=== PATIENT | male | born 1970 | race Caucasian/White ===

== ENCOUNTER → 2019-07-12 | Outpatient (CLI) | payer BC ==
[~2019-07-12] MED LIST: AGM875T PO; DOXY-233 PO
--- NOTE | 2019-07-12 11:16 | Diagnostic Imaging Report ---
PROCEDURE: US left lower extremity venous. TECHNIQUE: Multiple real-time grayscale images were obtained over the left lower extremity in various projections. Additional duplex Doppler and color Doppler images were also obtained. INDICATION: Left lower extremity swelling and redness. FINDINGS: There is no evidence of left lower extremity DVT. Left lower extremity deep venous system shows normal compressibility with normal response to augmentation and Valsalva. There is a prominent lymph node in the upper left thigh measuring 3.4 x 1.5 x 4.6 cm, indeterminate. IMPRESSION: 1. No evidence of left lower extremity DVT. 2. Prominent indeterminate left upper thigh lymph node. Dictated by: Dictated on workstation # [id number]
== END ==
LOC: RAD 09:52
PROVIDERS: ATTEND Nurse Practitioner Family
DX: M79.89 Other specified soft tissue disorders (principal); M79.662 Pain in left lower leg; R09.82 Postnasal drip; R05 Cough

== ENCOUNTER 2020-07-09 17:53 | Observation (INO) | payer BC ==
[~2020-07-09] VITALS: Ht 187.9 cm; Wt 120.2 kg
[2020-07-09 18:39] LABS: BASOPHILS # (AUTO) 0.1 10^3/uL (0.0-0.1); BASOPHILS % (AUTO) 0 % (0-10); EOSINOPHILS % (AUTO) 0 % (0-10); HEMATOCRIT 44 % (40-54); LYMPHOCYTES % (AUTO) 9 % (12-44); MEAN CORPUSCULAR HEMOGLOBIN 30 pg (25-34); MEAN CORPUSCULAR HGB CONC 34 g/dL (32-36); MEAN CORPUSCULAR VOLUME 88 fL (80-99); MEAN PLATELET VOLUME 10.3 fL (9.0-12.2); MONOCYTES % (AUTO) 5 % (0-12); NEUTROPHILS % (AUTO) 86 % (42-75); PLATELET COUNT 229 10^3/uL (130-400); WHITE BLOOD COUNT 23.2 10^3/uL (4.3-11.0)
[2020-07-09] MEDS ORDERED: LACTATED RINGERS 1,000 ML IV ONE ×2 (18:45→21:40)
--- NOTE | 2020-07-09 18:46 | ED Lower Extremity ---
General Chief Complaint: Lower Extremity Stated Complaint: L LEG REDNESS/SWELLING Nursing Triage Note: Pt ambulatory to ED. Pt reports noticing redness, pain and swelling in L lower extremity this morning. Erythema noted in pt's L lower extremity. Nursing Sepsis Screen: No Definite Risk (IRA DICKSON) History of Present Illness Date Seen by Provider: Jul 09, 2020 Time Seen by Provider: 18:20 Initial Comments This is a 50 year old male presenting to the Emergency Department via ambulation for a chief complaint of left leg redness and swelling that began this morning. The patient states this morning it started out as a small sore area with swelling and redness. It progressed and worsened. It's a 5/10 pain. He complains of a throbbing headache and feeling clammy. He denies fever. He tried ibuprofen and elevating his leg which helped. He stated this felt similar to the cellulitis he had last June. PMHx: diabetes PSHx: none SocHx: no smoking. drinks occasionally. no drugs medications: metformin, lisinopril, atorvastatin allergy to meds: amoxicillin (AE: upset stomach) Onset: this morning Pain/Injury Location: left leg (IRA DICKSON) Allergies and Home Medications Allergies Coded Allergies: amoxicillin (Verified Adverse Reaction, Mild, GI UPSET, 07/09/20) Patient Home Medication List Home Medication List Reviewed: Yes (MOUSTAPHA LOOMIS MD) Review of Systems Constitutional: other (clammy) EENTM: no symptoms reported Respiratory: no symptoms reported; No cough, No short of breath Cardiovascular: no symptoms reported Gastrointestinal: no symptoms reported Genitourinary: no symptoms reported Musculoskeletal: no symptoms reported Skin: change in color (redness on medial left calf), other (warmth and swelling on medial left calf) Psychiatric/Neurological: Headache (IRA DICKSON STUDENT) Past Nimdwal-Hjoiaj-Edduzt Hx Past Med/Social Hx: Reviewed Nursing Past Med/Soc Hx (MOUSTAPHA LOOMIS MD) Patient Social History Alcohol Use: Occasionally Uses Smoking Status: Never a Smoker 2nd Hand Smoke Exposure: No Recent Infectious Disease Expo: No Recent Hopitalizations: No (IRA DICKSON) Past Medical History Surgeries: Yes Respiratory: No Cardiac: Yes High Cholesterol, Hypertension Neurological: No Reproductive Disorders: No Genitourinary: No Gastrointestinal: No Musculoskeletal: No Endocrine: Yes Diabetes, Non-Insulin dep HEENT: No Cancer: No Psychosocial: No Blood Disorders: No (IRA DICKSON MED STUDENT) Physical Exam Vital Signs Vital Signs - First Documented 07/09/20 18:08 Temp 36.3 Pulse 108 Resp 22 B/P (MAP) 121/77 (92) Pulse Ox 96 O2 Delivery Room Air (MOUSTAPHA LOOMIS MD) Vital Signs Capillary Refill : Less Than 3 Seconds (IRA DICKSON MED STUDENT) Height, Weight, BMI Height: '" Weight: lbs. oz. kg; 34.00 BMI Method:Stated General Appearance: WD/WN, no apparent distress Cardiovascular: tachycardia Respiratory: chest non-tender, lungs clear, normal breath sounds, no respiratory distress, no accessory muscle use Legs: right leg non-tender, right leg normal inspection; bilateral leg normal range of motion, bilateral leg no evidence of injury; left leg soft tissue tenderness, left leg swelling, left leg other (warm, red) Neurologic/Tendon: normal motor functions, responds to pain Neurologic/Psychiatric: alert, normal mood/affect, oriented x 3 (IRA DICKSON MED STUDENT) Progress/Results/Core Measures Results/Orders Lab Results Laboratory Tests Test 07/09/20 18:20 07/09/20 19:55 Range/Units White Blood Count 23.2 H 4.3-11.0 10^3/uL Red Blood Count 4.98 4.30-5.52 10^6/uL Hemoglobin 15.0 13.3-17.7 g/dL Hematocrit 44 40-54 % Mean Corpuscular Volume 88 80-99 fL Mean Corpuscular Hemoglobin 30 25-34 pg Mean Corpuscular Hemoglobin Concent 34 32-36 g/dL Red Cell Distribution Width 11.9 10.0-14.5 % Platelet Count 229 130-400 10^3/uL Mean Platelet Volume 10.3 9.0-12.2 fL Immature Granulocyte % (Auto) 1 % Neutrophils (%) (Auto) 86 H 42-75 % Lymphocytes (%) (Auto) 9 L 12-44 % Monocytes (%) (Auto) 5 0-12 % Eosinophils (%) (Auto) 0 0-10 % Basophils (%) (Auto) 0 0-10 % Neutrophils # (Auto) 20.0 H 1.8-7.8 10^3/uL Lymphocytes # (Auto) 2.0 1.0-4.0 10^3/uL Monocytes # (Auto) 1.0 0.0-1.0 10^3/uL Eosinophils # (Auto) 0.0 0.0-0.3 10^3/uL Basophils # (Auto) 0.1 0.0-0.1 10^3/uL Immature Granulocyte # (Auto) 0.1 0.0-0.1 10^3/uL Neutrophils % (Manual) 87 % Lymphocytes % (Manual) 10 % Monocytes % (Manual) 3 % Blood Morphology Comment NORMAL Prothrombin Time 15.2 H 12.2-14.7 SEC INR Comment 1.2 0.8-1.4 Activated Partial Thromboplast Time 32 24-35 SEC D-Dimer 0.94 H 0.00-0.49 UG/ML Sodium Level 137 135-145 MMOL/L Potassium Level 4.0 3.6-5.0 MMOL/L Chloride Level 101 98-107 MMOL/L Carbon Dioxide Level 23 21-32 MMOL/L Anion Gap 13 5-14 MMOL/L Blood Urea Nitrogen 17 7-18 MG/DL Creatinine 1.11 0.60-1.30 MG/DL Estimat Glomerular Filtration Rate > 60 BUN/Creatinine Ratio 15 Glucose Level 120 H 70-105 MG/DL Lactic Acid Level 2.18 *H 1.95 0.50-2.00 MMOL/L Calcium Level 9.7 8.5-10.1 MG/DL C-Reactive Protein High Sensitivity 8.56 H 0.00-0.50 MG/DL (MOUSTAPHA LOOMIS MD) My Orders Orders - MOUSTAPHA LOOMIS MD Basic Metabolic Panel (07/09/20 18:27) Cbc With Automated Diff (07/09/20 18:27) Hs C Reactive Protein (07/09/20 18:27) Fibrin Degradation Products (07/09/20 18:27) Ed Iv/Invasive Line Start (07/09/20 18:27) Lactated Ringers (Lr 1000 Ml Iv Solution (07/09/20 18:45) Manual Differential (07/09/20 18:20) Blood Culture (07/09/20 19:43) Protime With Inr (07/09/20 19:43) Partial Thromboplastin Time (07/09/20 19:43) Vital Signs Adult Sepsis Patie Q15M (07/09/20 19:43) Remove Rings In Anticipation O (07/09/20 19:43) Lactic Acid Analyzer (07/09/20 19:43) Ceftriaxone For Iv Use (Rocephin For I (07/09/20 20:00) Enoxaparin Injection (Lovenox Injection) (07/09/20 20:00) (MOUSTAPHA LOOMIS MD) Medications Given in ED Current Medications Medications Dose Ordered Sig/Marilu Route Start Time Stop Time Status Last Admin Dose Admin Ceftriaxone Sodium 1000 mg/ Sterile Water 10 ml @ 200 mls/hr ONCE ONCE IV 07/09/20 20:00 07/09/20 20:02 DC 07/09/20 20:15 200 MLS/HR Enoxaparin Sodium 120 mg ONCE ONCE SC 07/09/20 20:00 07/09/20 20:01 DC 07/09/20 20:15 120 MG Lactated Ringer's 1,000 ml @ 0 mls/hr Q0M ONCE IV 07/09/20 18:45 07/09/20 18:46 DC 07/09/20 18:48 1,000 MLS/HR (MOUSTAPHA LOOMIS MD) Vital Signs/I&O 07/09/20 18:08 Temp 36.3 Pulse 108 Resp 22 B/P (MAP) 121/77 (92) Pulse Ox 96 O2 Delivery Room Air (MOUSTAPHA LOOMIS MD) Blood Pressure Mean: 92 Progress Progress Note #1: Time: 18:40 Progress Note - D-dimer was ordered to r/o a DVT due to the location on the lower left extremity. IV line was established. Blood work ordered, results pending.. LR was started. Septic workup due to 101 heart rate, diabetes, and possible source of infection. Progress Note #2: Progress Note - Tachycardia at 101 HR, WBC elevated at 23.2. U/S ordered for the morning because the D-dimer is elevated at .94. Vancomycin, Rocephin, and Lovenox ordered for the cellulitis. We discussed the patient being admitted. Patient agreed to be admitted. (IRA DICKSON MED STUDENT) Progress Note : Progress Note Patient was seen and examined by me personally. WBC and CRP were elevated suggesting sepsis from cellulitis. Patient received a liter of IV fluid and Rocephin for initial treatment. Vancomycin will be added on the floor. D-dimer was also elevated. Lovenox was given for empiric treatment. Ultrasound will be obtained in the morning. Borders of the erythema were marked with a skin marker. (MOUSTAPHA LOOMIS MD) Departure Communication (Admissions) Time/Spoke to Admitting Phy: 19:50 Dr. Calix (MOUSTAPHA LOOMIS MD) Impression Primary Impression: Cellulitis of left leg Additional Impressions: Sepsis Qualified Codes: A41.9 - Sepsis, unspecified organism Elevated d-dimer Disposition: ADMITTED INPATIENT Condition: Stable Admissions Decision to Admit Reason: Admit from ER (General) Decision to Admit/Date: Jul 09, 2020 Time/Decision to Admit Time: 19:50 (MOUSTAPHA LOOMIS MD) Departure-Patient Inst. Referrals: KEISHA PIMENTEL DO (PCP/Family) Primary Care Physician Medical Student Attestation and Attending Note: I have personally interviewed and examined this patient along with Ira Dickson, MS 3. I have reviewed student documentation including history, physical, and assessments. I agree with the documentation except where otherwise noted. Exam: General: Alert, oriented, no acute distress, well developed HEENT: Normocephalic and atraumatic Heart: Tachycardia without murmur Lungs: Clear to auscultation bilaterally with normal effort Abdomen: Soft, nontender, nondistended, normal bowel sounds Neuropsych: Alert, oriented, no focal deficits Skin: Warmth, erythema, and tenderness to a circumferential patch of skin on the left lower leg. Damaged skin at the edges of a couple of toenails on the left foot. (MOUSTAPHA LOOMIS MD) Copy Copies To 1: KEISHA PIMENTEL ELIZABETH X MED STUDENT Jul 09, 2020 18:46 MOUSTAPHA LOOMIS MD Jul 09, 2020 20:08
[2020-07-09 18:51] LABS: CHLORIDE 101 MMOL/L (98-107); SODIUM 137 MMOL/L (135-145)
[2020-07-09 18:52] LABS: CALCIUM 9.7 MG/DL (8.5-10.1)
[2020-07-09 18:53] LABS: GLUCOSE 120 MG/DL (70-105)
[2020-07-09 18:54] LABS: CARBON DIOXIDE 23 MMOL/L (21-32)
[2020-07-09 18:57] LABS: CREATININE SERUM 1.11 MG/DL (0.60-1.30); GFR ESTIMATED > 60
[2020-07-09 18:58] LABS: BUN/CREATININE RATIO 15
[2020-07-09 19:00] LABS: LYMPHOCYTES % (MANUAL) 10 %; MONOCYTES % (MANUAL) 3 %; NEUTROPHILS % (MANUAL) 87 %; RBC MORPH NORMAL
[2020-07-09 19:57] LABS: INR 1.2 (0.8-1.4); PROTHROMBIN TIME PATIENT 15.2 SEC (12.2-14.7)
[2020-07-09] MEDS ORDERED: cefTRIAXone FOR IV USE 1,000 MG in WATER (STERILE) FOR INJECTION 10 ML IV ONE (20:00)
[2020-07-09] MEDS ORDERED: ENOXAPARIN 60 MG/0.6 ML (LOVENOX) SYR SC ONE (20:00)
[2020-07-09] MEDS ORDERED: cefTRIAXone 1,000 MG/SWFI 10 ML IV PUSH IV SCH ×2 (20:00)
[2020-07-09] MEDS ORDERED: ONDANSETRON 4 MG/2 ML (SDV) Z0FRAN ONE (20:05)
[2020-07-09] MEDS ORDERED: ONDANSETRON 4 MG/2 ML (SDV) Z0FRAN IVP ONE (20:15)
[2020-07-09 21:40] VITALS: BP 127/67
--- NOTE | 2020-07-09 21:40 | NUR ---
HARDIK VALENTIN admitted to room 419-1, with an admitting diagnosis of sepsis and cellulitis, on 07/09/20 from ER via , accompanied by ED staff. HARDIK VALENTIN introduced to surroundings, call light, bed controls, phone, TV, temperature control, lights, meal times, smoking policy, visitor policy, side rail policy, bathrooms and showers. Patient Rights given to patient in the handbook. HARDIK VALENTIN verbalizes understanding that [facility] is not responsible for the loss or damage to any personal effects or valuables that are kept in the patients possession during their hospitalization.
[2020-07-09] MEDS: LACTATED RINGERS 1,000 ML IV SCH (22:08)
[2020-07-09] MEDS ORDERED: LISI-556 PO (22:12)
[2020-07-09] MEDS ORDERED: ATOR10TA66 PO (22:12)
[2020-07-09] MEDS ORDERED: METF-397 PO (22:12)
[2020-07-09] MEDS ORDERED: ONDANSETRON 4 MG/2 ML (SDV) Z0FRAN IV PRN (22:15)
[2020-07-09] MEDS ORDERED: VANCOMYCIN INJECTION 1,000 MG in NS (IVPB) 250 ML IV SCH (22:15)
[2020-07-09] MEDS ORDERED: IBUPROFEN 600 MG (MOTRIN) TAB PO PRN (22:15)
[2020-07-09] MEDS ORDERED: ACETAMINOPHEN 500 MG TAB (TYLENOL) PO PRN (22:15)
[2020-07-09] MEDS ORDERED: VANCOMYCIN 1000 MG/VIAL ONE (22:25)
[2020-07-09] MEDS ORDERED: NS IV 500 ML 500 ML ONE (22:28)
[2020-07-09] MEDS ORDERED: VANCOMYCIN INJECTION 2,000 MG in NS IV 500 ML 500 ML IV SCH (23:00)
[2020-07-10] VITALS: BP 95/55
[2020-07-10 04:12] VITALS: BP 107/62
[2020-07-10] MEDS ORDERED: NS (IVPB) 250 ML ONE (05:04)
[2020-07-10] MEDS ORDERED: VANCOMYCIN 1000 MG/VIAL ONE (05:04)
[2020-07-10] MEDS: VANCOMYCIN INJECTION 1,000 MG in NS (IVPB) 250 ML IV SCH ×3 (05:59→22:05)
[2020-07-10] MEDS: LACTATED RINGERS 1,000 ML IV SCH ×2 (05:59→12:39)
[2020-07-10 06:39] LABS: BASOPHILS % (AUTO) 0 % (0-10); EOSINOPHILS # (AUTO) 0.1 10^3/uL (0.0-0.3); EOSINOPHILS % (AUTO) 1 % (0-10); HEMATOCRIT 38 % (40-54); HEMOGLOBIN 13.2 g/dL (13.3-17.7); LYMPHOCYTES # (AUTO) 1.9 10^3/uL (1.0-4.0); LYMPHOCYTES % (AUTO) 16 % (12-44); MEAN CORPUSCULAR HEMOGLOBIN 31 pg (25-34); MEAN CORPUSCULAR HGB CONC 35 g/dL (32-36); MEAN CORPUSCULAR VOLUME 89 fL (80-99); MEAN PLATELET VOLUME 10.3 fL (9.0-12.2); MONOCYTES # (AUTO) 1.2 10^3/uL (0.0-1.0); MONOCYTES % (AUTO) 10 % (0-12); NEUTROPHILS # (AUTO) 8.4 10^3/uL (1.8-7.8); NEUTROPHILS % (AUTO) 72 % (42-75); PLATELET COUNT 163 10^3/uL (130-400); WHITE BLOOD COUNT 11.6 10^3/uL (4.3-11.0)
[2020-07-10] MEDS: inSUlin ASPART (NovoLOG) 1 UNIT/0.01 ML (CHARGE PER UNIT) SC SCH ×4 (06:42→20:30)
[2020-07-10 06:48] LABS: CHLORIDE 105 MMOL/L (98-107); POTASSIUM 4.3 MMOL/L (3.6-5.0); SODIUM 138 MMOL/L (135-145)
[2020-07-10 06:49] LABS: CALCIUM 8.6 MG/DL (8.5-10.1)
[2020-07-10 06:50] LABS: GLUCOSE 151 MG/DL (70-105)
[2020-07-10 06:51] LABS: CARBON DIOXIDE 26 MMOL/L (21-32)
[2020-07-10 06:53] LABS: CREATININE SERUM 0.83 MG/DL (0.60-1.30); GFR ESTIMATED > 60
[2020-07-10 06:54] LABS: BUN/CREATININE RATIO 16
[2020-07-10 08:00] VITALS: BP 109/67
--- NOTE | 2020-07-10 08:44 | History & Physical-Hospitalist ---
VIVIANA ANDINO,MED STUDENT 07/10/20 0844: History of Present Illness HPI/Chief Complaint Patient is a 50yo male with a PMH of NIDDM and HTN who presented to [facility] ED on 05/09 c/o LLE redness and swelling for x1 day. He states he noticed on some pain in his left calf when he woke up yesterday morning, and noted it was somewhat painful to walk. He has a hx of cellulitis in June of 2019 that did not require hospitalization, and he says this pain felt similar. He had planned to see his PCP on Friday, but says the pain progressed throughout the day, and he noticed redness and swelling from his calf to his ankle. He states the pain was a 5/10 and "felt like a leg cramp". He notes his temperature was 99 at home. He tried OTC Motrin and Tylenol which helped some. He also reports some fatigue and tachycardia at home. In the ED, WBC, CRP and lactic acid were elevated, and d- dimer was elevated. He was started on Rocephin and fluids, and was scheduled for a lower extremity ultrasound for this morning. Source: patient Exam Limitations: no limitations Date Seen 07/10/20 Time Seen by a Provider: 07:45 Attending Physician Ana Calix MD PCP Luis Massey DO Referring Physician Date of Admission Jul 09, 2020 at 20:02 Home Medications & Allergies Home Medications Reviewed patient Home Medication Reconciliation performed by pharmacy medication reconciliations dental technician and/or nursing. Patients Allergies have been reviewed. Allergies Allergies Coded Allergies amoxicillin (Verified Adverse Reaction, Mild, GI UPSET, 07/09/20) Past Bgkoixo-Lvlwte-Zpusaj Hx Past Med/Social Hx: Reviewed Nursing Past Med/Soc Hx Patient Social History Marrital Status: Alcohol Use: Occasionally Uses Recreational Drug Use: No Smoking Status: Never a Smoker 2nd Hand Smoke Exposure: No Recent Foreign Travel: No Contact w/other who traveled: No Recent Hopitalizations: No Recent Infectious Disease Expo: No Immunizations Up To Date Date of Influenza Vaccine: Apr 10, 2020 Past Medical History Cardiac: High Cholesterol, Hypertension Reproductive: No Endocrine: Diabetes, Non-Insulin dep History of Blood Disorders: No Family History Diabetes (Father and grandfather) Review of Systems Constitutional: No chills, No dizziness, No fever; malaise EENTM: No hearing loss, No blurred vision, No double vision, No vision loss, No nose congestion, No throat pain Respiratory: No cough, No short of breath, No wheezing Cardiovascular: No chest pain, No palpitations, No syncope Gastrointestinal: No abdominal pain, No constipation, No diarrhea; nausea; No vomiting Genitourinary: no symptoms reported Musculoskeletal: see HPI Skin: see HPI, change in color; No lumps, No pruritus Psychiatric/Neurological: Headache; Denies Numbness; Paresthesia; Denies Tingling, Denies Weakness Physical Exam Physical Exam Vital Signs Vital Signs - First Documented 07/09/20 18:08 Temp 36.3 Pulse 108 Resp 22 B/P (MAP) 121/77 (92) Pulse Ox 96 O2 Delivery Room Air Capillary Refill : NONELess Than 3 Seconds Height, Weight, BMI Height: '" Weight: lbs. oz. kg; 34.04 BMI Method:Stated General Appearance: No Apparent Distress, WD/WN HEENT: PERRL/EOMI, Pharynx Normal, Moist Mucous Membranes Neck: Full Range of Motion, Non Tender, Supple Respiratory: Chest Non Tender, Normal Breath Sounds, No Accessory Muscle Use, No Respiratory Distress Cardiovascular: Regular Rate, Rhythm, No Edema, No Murmur, Normal Peripheral Pulses Gastrointestinal: Normal Bowel Sounds, Non Tender, Soft Extremity: Normal Capillary Refill, Normal Range of Motion, No Pedal Edema; No Calf Tenderness; Inflammation, Swelling Neurologic/Psychiatric: Alert, Oriented x3, No Motor/Sensory Deficits Skin: Erythema (LLE) Results Results/Procedures Labs Laboratory Tests 07/09/20 18:20 07/10/20 06:30 Patient resulted labs reviewed. Assessment/Plan Admission Diagnosis Left leg cellulitis Assessment and Plan Left leg cellulitis -on Rocephin and Vanc -d-dimer elevated, ultrasound pending -Lovenox for DVT prophylaxis Sepsis -continue abx -on LR at 150/hr -repeat lactic acid Leukocytosis -improving NIDDM -continue Metformin 500mg BID Hypertension -hold Lisinopril JOHNNY MUNOZ MD 07/10/20 1357: Assessment/Plan Admission Diagnosis Admission Status: Inpatient Order (span 2 midnights) Reason for Inpatient Admission: see below Assessment and Plan Pt admitted with severe sepsis from cellulitis of left leg. He is doing much better on IV abx. Cultures are pending at this time. Lactic acidosis resolved. No other complaints. lower extremity usg done and negative for DVT. Decrease Lovenox to 40mg. If continues to do well hopeful to DC home tomorrow. Diagnosis/Problems Diagnosis/Problems (1) Severe sepsis (2) Cellulitis of left leg Status: Acute (3) Elevated d-dimer Status: Acute (4) Hypertension (5) Non-insulin dependent type 2 diabetes mellitus Supervisory-Addendum Brief Verification & Attestation Participated in pt care: history, MDM, physical Personally performed: exam, history, MDM, supervision of care Care discussed with: Medical Student Procedures: n/a Results interpretation: Verified all documentation Verification and Attestation of Medical Student E/M Service A medical student performed and documented this service in my presence. I reviewed and verified all information documented by the medical student and made modifications to such information, when appropriate. I personally performed the physical exam and medical decision making. Johnny Munoz, Jul 10, 2020,13:47 VIVIANA ANDINO,MED STUDENT Jul 10, 2020 08:44 JOHNNY MUNOZ MD Jul 10, 2020 13:57
--- NOTE | 2020-07-10 09:51 | Diagnostic Imaging Report ---
PROCEDURE: US left lower extremity venous. TECHNIQUE: Multiple real-time grayscale images were obtained over the left lower extremity in various projections. Additional duplex Doppler and color Doppler images were also obtained. INDICATION: Cellulitis left lower leg. Nodule in the left groin. FINDINGS: Color Doppler imaging shows normal flow through the venous system of the left lower extremity from the common femoral vein to the ankle. Calf compression showed normal augmentation of flow at the popliteal level. There is an enlarged lymph node in the left groin measuring 2.5 x 3.8 x 1.2 cm. This does show thickening of the cortical mantle. IMPRESSION: 1. No evidence of venous thrombosis left lower extremity. 2. Enlarged lymph nodes left groin. Dictated by: Dictated on workstation # [id number]
[2020-07-10] MEDS ORDERED: CETI10TA49 PO (11:14)
[2020-07-10] MEDS ORDERED: ZINC50TA51 PO (11:14)
[2020-07-10] MEDS ORDERED: ASCO500T17 PO (11:14)
[2020-07-10] MEDS ORDERED: IBUP-2473 PO (11:14)
[2020-07-10] MEDS ORDERED: ACET325T38 PO (11:14)
[2020-07-10] MEDS ORDERED: MULT-974 PO (11:14)
--- NOTE | 2020-07-10 11:15 | NUR ---
I SPOKE WITH THE PATIENT AND WENT THROUGH THE EXTERNAL MED HISTORY TO COMPLETE THIS MED REC. OTC: TYLENOL IBUPROFEN ZYRTEC MULTIVITAMIN VITAMIN C ZINC
[2020-07-10 12:00] VITALS: BP 106/66
[2020-07-10] MEDS: LACTOBACILLUS ACIDOPHILUS (PROBIOTIC) CAPSULE PO SCH ×2 (12:39→18:08)
[2020-07-10 16:00] VITALS: BP 122/72
[2020-07-10 19:24] VITALS: BP 125/72
[2020-07-10] MEDS ORDERED: cefTRIAXone 1,000 MG/SWFI 10 ML IV PUSH IV SCH ×2 (20:00)
[2020-07-10] MEDS ORDERED: ENOXAPARIN 40 MG/0.4 ML (LOVENOX) SYR SC SCH (21:00)
[2020-07-10] MEDS ORDERED: TROUGH ORDER-PHARMACY XX NR (21:00)
[2020-07-11 00:44] VITALS: BP 116/63
[2020-07-11] MEDS: VANCOMYCIN INJECTION 1,000 MG in NS (IVPB) 250 ML IV SCH (05:59)
[2020-07-11] MEDS: inSUlin ASPART (NovoLOG) 1 UNIT/0.01 ML (CHARGE PER UNIT) SC SCH (06:00)
[2020-07-11 08:00] VITALS: BP 123/78
[2020-07-11 08:00] LABS: HEMOGLOBIN 13.2 g/dL (13.3-17.7); MEAN PLATELET VOLUME 10.4 fL (9.0-12.2); WHITE BLOOD COUNT 6.8 10^3/uL (4.3-11.0)
[2020-07-11 08:18] LABS: BUN/CREATININE RATIO 13; CALCIUM 8.7 MG/DL (8.5-10.1); CARBON DIOXIDE 24 MMOL/L (21-32); CHLORIDE 107 MMOL/L (98-107); CREATININE SERUM 0.83 MG/DL (0.60-1.30); GFR ESTIMATED > 60; GLUCOSE 162 MG/DL (70-105); POTASSIUM 4.2 MMOL/L (3.6-5.0); SODIUM 141 MMOL/L (135-145)
--- NOTE | 2020-07-11 08:53 | Progress Note - Hospitalist ---
Subjective HPI/CC On Admission Date Seen by Provider: Jul 11, 2020 Time Seen by Provider: 08:15 Patient is a 50yo male with a PMH of NIDDM and HTN who presented to [facility] ED on 05/09 c/o LLE redness and swelling for x1 day. He states he noticed on some pain in his left calf when he woke up yesterday morning, and noted it was somewhat painful to walk. He has a hx of cellulitis in June of 2019 that did not require hospitalization, and he says this pain felt similar. He had planned to see his PCP on Friday, but says the pain progressed throughout the day, and he noticed redness and swelling from his calf to his ankle. He states the pain was a 5/10 and "felt like a leg cramp". He notes his temperature was 99 at home. He tried OTC Motrin and Tylenol which helped some. He also reports some fatigue and tachycardia at home. In the ED, WBC, CRP and lactic acid were elevated, and d- dimer was elevated. He was started on Rocephin and fluids, and was scheduled for a lower extremity ultrasound for this morning. Focused Exam Lactate Level 07/09/20 18:20: Lactic Acid Level 2.18*H 07/09/20 19:55: Lactic Acid Level 1.95 Objective Exam Vital Signs Vital Signs Date Time Temp Pulse Resp B/P (MAP) Pulse Ox O2 Delivery O2 Flow Rate FiO2 07/11/20 11:05 35.5 66 18 123/78 96 Room Air Capillary Refill : NONELess Than 3 Seconds General Appearance: No Apparent Distress, WD/WN HEENT: PERRL/EOMI, Pharynx Normal, Moist Mucous Membranes Neck: Full Range of Motion, Non Tender, Supple Respiratory: Normal Breath Sounds, No Accessory Muscle Use, No Respiratory Distress Cardiovascular: Regular Rate, Rhythm, No Edema, No Murmur, Normal Peripheral Pulses Gastrointestinal: Normal Bowel Sounds, Non Tender, Soft Extremity: Normal Capillary Refill, No Calf Tenderness Neurologic/Psychiatric: Alert, Oriented x3 Results/Procedures Lab Laboratory Tests 07/11/20 07:53 Patient resulted labs reviewed. Assessment/Plan Assessment and Plan Assess & Plan/Chief Complaint Left leg cellulitis -on Rocephin and Vanc -LLE ultrasound negative for DVT -Lovenox 40mg for DVT prophylaxis -consider D/C home today Severe Sepsis -continue abx -lactic acidosis resolved Leukocytosis -improving NIDDM -continue Metformin 500mg BID Hypertension -hold Lisinopril VIVIANA ANDINO,MED STUDENT Jul 11, 2020 08:52
[2020-07-11] MEDS ORDERED: CEPH500T PO (10:03)
[2020-07-11] MEDS: LACTOBACILLUS ACIDOPHILUS (PROBIOTIC) CAPSULE PO SCH (10:17)
--- NOTE | 2020-07-11 10:18 | Discharge Inst-Simple/Standard ---
Discharge Inst-Standard Patient Instructions/Follow Up Plan of Care/Instructions/FU: Please continue to take your medications as written. Please follow up with your primary care doctor to follow up this hospital stay. Activity as Tolerated: Yes Discharge Diet: ADA Diet Return to The Hospital For: Chest pain, shortness of breath, fever, worsening swelling or redness, if you feel you are getting worse. JOHNNY RIGGINS MD Jul 11, 2020 10:10
[2020-07-11] MEDS ORDERED: inSUlin ASPART (NovoLOG) 1 UNIT/0.01 ML (CHARGE PER UNIT) SC SCH (11:00)
[2020-07-11 11:05] VITALS: BP 123/78
--- NOTE | 2020-07-11 11:22 | Discharge Summary ---
Diagnosis/Chief Complaint Date of Admission Jul 09, 2020 at 20:02 Date of Discharge 07/11/20 Discharge Date: Jul 11, 2020 Admission Diagnosis Primary Care AndrewLuis bowles Discharge Diagnosis (1) Severe sepsis (2) Cellulitis of left leg Status: Acute (3) Elevated d-dimer Status: Acute (4) Hypertension (5) Non-insulin dependent type 2 diabetes mellitus Discharge Summary Discharge Physical Exam Allergies: Coded Allergies: amoxicillin (Verified Adverse Reaction, Mild, GI UPSET, 07/09/20) Vitals & I&Os Vital Signs Date Time Temp Pulse Resp B/P (MAP) Pulse Ox O2 Delivery O2 Flow Rate FiO2 07/11/20 11:05 35.5 66 18 123/78 96 Room Air General Appearance: No Apparent Distress, WD/WN HEENT: PERRL/EOMI, Pharynx Normal, Moist Mucous Membranes Respiratory: Chest Non Tender, Normal Breath Sounds, No Accessory Muscle Use, No Respiratory Distress Cardiovascular: Regular Rate, Rhythm, No Edema, No Murmur, Normal Peripheral Pulses Gastrointestinal: Normal Bowel Sounds, Non Tender, Soft Extremity: Normal Capillary Refill, Non Tender, No Calf Tenderness Skin: Warm/Dry, Erythema (Improved since admission) Neurologic/Psychiatric: Alert, Oriented x3, Normal Mood/Affect Hospital Course Patient is a 50yo male with a PMH of NIDDM and HTN who presented to [facility] ED on 05/09 c/o LLE redness and swelling for x1 day. He had noticed pain in his left calf the day before and that it was painful to walk. He has a hx of cellulitis in June of 2019 for which he was successfully treated outpatient with abx. He had planned to see his PCP the following Friday, but came in after the pain and swelling progressed throughout the day. He reported subjective fevers, fatigue and tachycardia at home. In the ED, WBC, CRP, lactic acid and d-dimer were elevated. A LLE ultrasound was performed due to the elevated d-dimer, which was negative for a DVT. He was started on Rocephin and admitted for LLE cellulitis and severe sepsis. He was also started on Vancomycin and he continued to improve. The lactic acidosis resolved, his WBC improved and he was afebrile throughout his hospital stay. Prior to discharge, he denied any new concerns, and reported his pain was well controlled and only experienced mild pain while walking. Labs (last 24 hrs) Laboratory Tests 07/10/20 15:34: Glucometer 143H 07/10/20 20:18: Glucometer 173H 07/10/20 21:20: Vancomycin Level Trough 11.0 07/11/20 05:59: Glucometer 158H 07/11/20 07:53: White Blood Count 6.8, Red Blood Count 4.31, Hemoglobin 13.2L, Hematocrit 39L, Mean Corpuscular Volume 90, Mean Corpuscular Hemoglobin 31, Mean Corpuscular Hemoglobin Concent 34, Red Cell Distribution Width 12.2, Platelet Count 167, Mean Platelet Volume 10.4, Sodium Level 141, Potassium Level 4.2, Chloride Level 107, Carbon Dioxide Level 24, Anion Gap 10, Blood Urea Nitrogen 11, Creatinine 0.83, Estimat Glomerular Filtration Rate > 60, BUN/Creatinine Ratio 13, Glucose Level 162H, Calcium Level 8.7 Microbiology 07/09/20 Blood Culture - Preliminary, Resulted No growth Patient resulted labs reviewed. Pending Labs Laboratory Tests 07/11/20 05:59: Glucometer 158 07/11/20 07:53: White Blood Count 6.8, Red Blood Count 4.31, Hemoglobin 13.2, Hematocrit 39, Mean Corpuscular Volume 90, Mean Corpuscular Hemoglobin 31, Mean Corpuscular Hemoglobin Concent 34, Red Cell Distribution Width 12.2, Platelet Count 167, Mean Platelet Volume 10.4, Sodium Level 141, Potassium Level 4.2, Chloride Level 107, Carbon Dioxide Level 24, Anion Gap 10, Blood Urea Nitrogen 11, Creatinine 0.83, Estimat Glomerular Filtration Rate > 60, BUN/Creatinine Ratio 13, Glucose Level 162, Calcium Level 8.7 Discharge Home Medications: Active Scripts Active Cephalexin 500 Mg Tablet 500 Mg PO BID Reported Zinc (Zinc Amino Acid Chelate) 50 Mg Tablet 50 Mg PO DAILY Vitamin C (Ascorbic Acid) 500 Mg Tablet 500 Mg PO DAILY Multi-Vitamin Daily (Multivitamin) 1 Each Tablet 1 Each PO DAILY Tylenol (Acetaminophen) 325 Mg Tablet 650 Mg PO Q6H PRN TAKES 2 (325MG) TABLETS Ibuprofen 200 Mg Tablet 600 Mg PO Q6H PRN TAKES 3 (200MG) TABLETS Zyrtec (Cetirizine HCl) 10 Mg Tablet 10 Mg PO DAILY PRN Atorvastatin Calcium 10 Mg Tablet 10 Mg PO DAILY Metformin HCl 500 Mg Tablet 500 Mg PO BID Lisinopril 5 Mg Tablet 5 Mg PO DAILY Instructions to patient/family Please see electronic discharge instructions given to patient. VIVIANA ANDINO,MED STUDENT Jul 11, 2020 11:22
== END 2020-07-11 10:25 | disposition home or self-care (01) ==
LOC: EDUNIT# 17:53 → ER 17:55 → UNDOADMOB 20:02 → 4TH 20:02 → UNDODISOB 07-11 11:05
PROVIDERS: ADMIT Internal Medicine; ATTEND Internal Medicine
DX: A41.9 Sepsis, unspecified organism (principal); L03.116 Cellulitis of left lower limb; I10 Essential (primary) hypertension; E11.9 Type 2 diabetes mellitus without complications; E78.00 Pure hypercholesterolemia, unspecified; Z79.899 Other long term (current) drug therapy; Z88.1 Allergy status to other antibiotic agents
CPT/HCPCS: 36415; 80048; 80202; 82962; 83605; 85007; 85025; 85027; 85379; 85610; 85730; 86141; 87040; 94760; G0378

== ENCOUNTER 2021-06-25 11:07 | Outpatient (CLI) | payer BC ==
[~2021-06-25] VITALS: Ht 187 cm; Wt 120.2 kg
[~2021-06-25 11:07] MED LIST changes: +ACET325T38 PO; +ASCO500T17 PO; +ATOR10TA66 PO; +CEPH500T PO; +CETI10TA49 PO; +IBUP-2473 PO; +LISI5TAB20 PO; +METF-397 PO; +MULT-974 PO; +ZINC50TA51 PO
[2021-06-25 11:12] VITALS: BP 145/79
[2021-06-25] MEDS ORDERED: SOTROVIMAB 500 MG/NS 100 ML IVPB IV ONE ×2 (11:30)
[2021-06-25] MEDS ORDERED: ONDANSETRON 4 MG/2 ML (SDV) Z0FRAN IV PRN (11:30)
[2021-06-25] MEDS ORDERED: ACETAMINOPHEN 500 MG TAB (TYLENOL) PO PRN (11:30)
[2021-06-25] MEDS ORDERED: EPINEPHrine INJECTION 1 MG/ML AMP IM PRN (11:30)
[2021-06-25] MEDS ORDERED: diphenhydrAMINE 50 MG/ML INJ (BENADRYL) IV PRN (11:30)
[2021-06-25 12:39] VITALS: BP 130/80
== END 2021-06-25 12:39 ==
LOC: INFUSION 11:07
PROVIDERS: ATTEND Physician Assistant
DX: U07.1 COVID-19 (principal)

== ENCOUNTER → 2021-11-29 | Outpatient (CLI) | payer BC | LOC: WOUNDCARE 12:42 | PROVIDERS: ATTEND Family Medicine | DX: L97.521 Non-pressure chronic ulcer of other part of left foot limited to breakdown of skin (principal); E11.621 Type 2 diabetes mellitus with foot ulcer; E11.40 Type 2 diabetes mellitus with diabetic neuropathy, unspecified; E66.01 Morbid (severe) obesity due to excess calories; L03.116 Cellulitis of left lower limb | CPT/HCPCS: 11042; A6197; G0463; L4360 ==

== ENCOUNTER → 2021-12-06 | Outpatient (CLI) | payer BC | LOC: WOUNDCARE 12:13 | PROVIDERS: ATTEND Family Medicine | DX: L97.521 Non-pressure chronic ulcer of other part of left foot limited to breakdown of skin (principal); E11.621 Type 2 diabetes mellitus with foot ulcer; E11.40 Type 2 diabetes mellitus with diabetic neuropathy, unspecified; E66.01 Morbid (severe) obesity due to excess calories | CPT/HCPCS: 11042; G0463 ==

== ENCOUNTER → 2021-12-06 | Outpatient (CLI) | payer BC ==
[2021-12-06 13:40] LABS: ALBUMIN 4.2 GM/DL (3.2-4.5); BILIRUBIN,TOTAL 0.7 MG/DL (0.1-1.0); CALCIUM 9.2 MG/DL (8.5-10.1); CREATININE SERUM 0.83 MG/DL (0.60-1.30); POTASSIUM 4.6 MMOL/L (3.6-5.0); TOTAL PROTEIN 7.3 GM/DL (6.4-8.2)
== END ==
LOC: LAB 13:04
PROVIDERS: ATTEND Family Medicine
DX: E11.621 Type 2 diabetes mellitus with foot ulcer (principal); L97.521 Non-pressure chronic ulcer of other part of left foot limited to breakdown of skin
CPT/HCPCS: 36415; 80053; 83036

== ENCOUNTER → 2021-12-12 | Outpatient (CLI) | payer BC | LOC: WOUNDCARE 08:57 | PROVIDERS: ATTEND Family Medicine | DX: E11.621 Type 2 diabetes mellitus with foot ulcer (principal); E11.40 Type 2 diabetes mellitus with diabetic neuropathy, unspecified; L97.521 Non-pressure chronic ulcer of other part of left foot limited to breakdown of skin; E66.01 Morbid (severe) obesity due to excess calories; S90.822A Blister (nonthermal), left foot, initial encounter; Z68.34 Body mass index [BMI] 34.0-34.9, adult | CPT/HCPCS: 11042; 97597; A6197; G0463 ==

== ENCOUNTER → 2021-12-20 | Outpatient (CLI) | payer BC | LOC: WOUNDCARE 12:15 | PROVIDERS: ATTEND Family Medicine | DX: E11.621 Type 2 diabetes mellitus with foot ulcer (principal); L97.521 Non-pressure chronic ulcer of other part of left foot limited to breakdown of skin; E11.40 Type 2 diabetes mellitus with diabetic neuropathy, unspecified; E66.01 Morbid (severe) obesity due to excess calories | CPT/HCPCS: 11042; G0463 ==

== ENCOUNTER → 2022-01-03 | Outpatient (CLI) | payer BC | LOC: WOUNDCARE 15:31 | PROVIDERS: ATTEND Family Medicine | DX: E11.621 Type 2 diabetes mellitus with foot ulcer (principal); L97.521 Non-pressure chronic ulcer of other part of left foot limited to breakdown of skin; E11.40 Type 2 diabetes mellitus with diabetic neuropathy, unspecified; E66.01 Morbid (severe) obesity due to excess calories; Z68.34 Body mass index [BMI] 34.0-34.9, adult | CPT/HCPCS: 99212 ==